=== PATIENT | female | born 1985 | race African-American/Black ===

== ENCOUNTER 2017-09-30 15:38 | Emergency (ER) | payer OTHER, MEDICAID, SELFPAY ==
[2017-09-30 18:00] LABS: HEMATOCRIT 37.5 % (36.0-47.0); MEAN CORPUSCULAR HEMOGLOBIN 26.7 pg (27.0-33.0); MEAN CORPUSCULAR VOLUME 83.5 fl (80.0-96.0); PLATELET COUNT, AUTOMATED 241 10^3/uL (150-450); RED BLOOD COUNT 4.49 10^6/uL (4.00-5.40); RED CELL DISTRIBUTION WIDTH 13.7 % (11.5-14.5); WHITE BLOOD COUNT 9.7 10^3/uL (4.0-10.0)
[2017-09-30] MEDS: NS 1,000 ML IV (18:07)
[2017-09-30 18:29] LABS: APPEARANCE, URINE HAZY (CLEAR); BACTERIA, URINE AUTO 2+ (NEGATIVE); BILIRUBIN, URINE AUTO NEGATIVE (NEGATIVE); BLOOD, URINE BLOOD NEGATIVE (NEGATIVE); COLOR, URINE YELLOW (YELLOW); GLUCOSE, URINE (UA) AUTO NEGATIVE (NEGATIVE); KETONE, URINE AUTO NEGATIVE (NEGATIVE); LEUKOCYTE ESTERASE, URINE AUTO NEGATIVE (NEGATIVE); MUCUS, URINE SMALL (NEGATIVE); NITRITE, URINE AUTO POSITIVE (NEGATIVE); PROTEIN, URINE AUTO NEGATIVE (NEGATIVE); RBC, URINE AUTO 4 /HPF (0-3); SQUAMOUS EPITHELIAL CELL UR AU 0 /HPF (0-6); UROBILINOGEN, URINE AUTO 0.2 mg/dL (0.0-2.0); WBC, URINE AUTO 1 /HPF (0-3); YEAST LIKE CELL URINE AUTO SMALL
[2017-09-30 18:31] LABS: HCG, SERUM QUANTITATIVE 190 MIU/ML
== END 2017-09-30 19:55 | disposition home or self-care (01) ==
LOC: M ED 15:38
DX: O20.0 Threatened abortion (principal); O23.11 Infections of bladder in pregnancy, first trimester; O34.81 Maternal care for other abnormalities of pelvic organs, first trimester; N83.201 Unspecified ovarian cyst, right side; Z98.890 Other specified postprocedural states; Z3A.00 Weeks of gestation of pregnancy not specified
CPT/HCPCS: 76801

== ENCOUNTER → 2017-10-02 | Outpatient (CLI) | payer OTHER ==
[2017-10-02 14:41] LABS: HCG, SERUM QUANTITATIVE 646 MIU/ML
== END ==
LOC: M LAB 08:00
DX: O20.0 Threatened abortion (principal)
CPT/HCPCS: 84702

== ENCOUNTER → 2017-10-02 | Outpatient (CLI) | payer OTHER | LOC: M LAB 13:32 | DX: O20.0 Threatened abortion (principal); Z3A.00 Weeks of gestation of pregnancy not specified ==

== ENCOUNTER 2017-10-08 17:43 | Emergency (ER) | payer OTHER ==
[2017-10-08 19:43] LABS: BASO % 0.2 % (0.0-1.0); EOS # 0.1 10^3/uL (0.0-0.50); EOS % 0.8 % (0.0-3.0); HEMATOCRIT 37.2 % (36.0-47.0); IMMATURE GRANULOCYTE % 0.3 % (0-3.0); LYMPH % 19.3 % (24.0-44.0); MEAN CORPUSCULAR HGB CONC 32.3 g/dl (32.0-36.5); MEAN CORPUSCULAR VOLUME 83.8 fl (80.0-96.0); MONO # 0.8 10^3/uL (0.0-0.8); MONO % 7.2 % (0.0-5.0); NEUTROPHILS # 7.5 10^3/uL (1.8-7.7); NEUTROPHILS % 72.2 % (36.0-66.0); PLATELET COUNT, AUTOMATED 238 10^3/uL (150-450); RED BLOOD COUNT 4.44 10^6/uL (4.00-5.40); RED CELL DISTRIBUTION WIDTH 14.3 % (11.5-14.5); WHITE BLOOD COUNT 10.4 10^3/uL (4.0-10.0)
[2017-10-08 20:03] LABS: AMMONIA 13 uMOL/L (<32)
[2017-10-08 20:19] LABS: LACTIC ACID SEPSIS PROTOCOL 1.9 MMOL/L (0.4-2.0)
[2017-10-08 20:22] LABS: ALBUMIN 3.4 GM/DL (3.2-5.2); ALBUMIN/GLOBULIN RATIO 0.89 (1.00-1.93); ALKALINE PHOSPHATASE 71 U/L (45-117); ALT/SGPT 40 U/L (12-78); ANION GAP 6 MEQ/L (8-16); AST/SGOT 17 U/L (7-37); BILIRUBIN,DIRECT 0.1 MG/DL (0.0-0.2); BILIRUBIN,TOTAL 0.3 MG/DL (0.2-1.0); BLOOD UREA NITROGEN 8 MG/DL (7-18); CALCIUM LEVEL 8.7 MG/DL (8.5-10.1); CARBON DIOXIDE LEVEL 25 MEQ/L (21-32); CHLORIDE LEVEL 108 MEQ/L (98-107); CREATININE FOR GFR 0.76 MG/DL (0.55-1.30); FREE THYROXINE INDEX 3.5 % (1.3-4.8); GLOMERULAR FILTRATION RATE > 60.0 (>60); GLUCOSE, FASTING 105 MG/DL (70-100); HCG, SERUM QUANTITATIVE 5803 MIU/ML; POTASSIUM SERUM 4.2 MEQ/L (3.5-5.1); SODIUM LEVEL 139 MEQ/L (136-145); T UPTAKE 30 % (30-39); THYROID STIMULATING HORMONE 0.691 uIU/ML (0.358-3.740); THYROXINE (T4) 11.5 UG/DL (4.5-12.0); TOTAL PROTEIN 7.2 GM/DL (6.4-8.2)
[2017-10-08 20:31] LABS: ETHYL ALCOHOL (ETHANOL) < 0.003 % (0.000-0.010)
[2017-10-08 20:53] LABS: ABG BASE EXCESS -3.8 (-2.0-2.0); ABG HCO3 19.5 MEQ/L (22.0-26.0); ABG O2 SATURATION 98.8 % (95.0-99.0); ABG PARTIAL PRESSURE CO2 30.5 mmHg (35.0-45.0); ABG PARTIAL PRESSURE O2 120.4 mmHg (75.0-100.0); ABG STANDARD HCO3 21.3 MEQ/L (22.0-26.0); ABG TOTAL CO2 20.4 MEQ/L (22.0-29.0); ABG pH (ARTERIAL) 7.423 UNITS (7.350-7.450)
[2017-10-08 21:54] LABS: AMORPHOUS SEDIMENT SMALL (NEGATIVE); APPEARANCE, URINE CLOUDY (CLEAR); BACTERIA, URINE AUTO NEGATIVE (NEGATIVE); BILIRUBIN, URINE AUTO NEGATIVE (NEGATIVE); BLOOD, URINE BLOOD 1+ (NEGATIVE); COLOR, URINE YELLOW (YELLOW); GLUCOSE, URINE (UA) AUTO NEGATIVE (NEGATIVE); KETONE, URINE AUTO TRACE mg/dL (NEGATIVE); LEUKOCYTE ESTERASE, URINE AUTO TRACE (NEGATIVE); MUCUS, URINE SMALL (NEGATIVE); NITRITE, URINE AUTO NEGATIVE (NEGATIVE); PROTEIN, URINE AUTO NEGATIVE (NEGATIVE); RBC, URINE AUTO 1 /HPF (0-3); SPECIFIC GRAVITY URINE AUTO 1.015 (1.002-1.035); SQUAMOUS EPITHELIAL CELL UR AU 1 /HPF (0-6); UROBILINOGEN, URINE AUTO 0.2 mg/dL (0.0-2.0); WBC, URINE AUTO 5 /HPF (0-3)
[2017-10-08] MEDS: MORPHINE 10 MG/ML 1ML VIAL (J2270) IM ×2 (22:00)
[2017-10-08 22:11] LABS: AMPHETAMINES LEVEL URINE NEGATIVE (NEGATIVE); BARBITURATES URINE NEGATIVE (NEGATIVE); BENZODIAZEPINES URINE NEGATIVE (NEGATIVE); CANNABINOIDS URINE NEGATIVE (NEGATIVE); COCAINE METABOLITE URINE NEGATIVE (NEGATIVE); METHADONE URINE NEGATIVE (NEGATIVE); OPIATES URINE NEGATIVE (NEGATIVE); PHENCYCLIDINE URINE NEGATIVE (NEGATIVE)
== END 2017-10-09 00:58 | disposition home or self-care (01) ==
LOC: M ED 10-09 00:58
DX: O99.351 Diseases of the nervous system complicating pregnancy, first trimester (principal); O99.89 Other specified diseases and conditions complicating pregnancy, childbirth and the puerperium (principal); Z3A.01 Less than 8 weeks gestation of pregnancy; G43.909 Migraine, unspecified, not intractable, without status migrainosus; O34.81 Maternal care for other abnormalities of pelvic organs, first trimester
CPT/HCPCS: J2270

== ENCOUNTER → 2017-11-08 | Outpatient (CLI) | payer OTHER ==
[2017-11-08 17:10] LABS: ESTIMATED AVERAGE GLUCOSE 100 MG/DL (60-110); HEMOGLOBIN A1c 5.1 %
[2017-11-08 17:27] LABS: GLUCOSE CHALLENGE TEST 1 HOUR 144 MG/DL (LESS THAN 140)
[2017-11-08 17:44] LABS: BASO % 0.3 % (0.0-1.0); EOS # 0.2 10^3/uL (0.0-0.50); EOS % 2.1 % (0.0-3.0); HEMATOCRIT 35.8 % (36.0-47.0); HEMOGLOBIN 11.5 g/dl (12.0-15.5); IMMATURE GRANULOCYTE % 0.3 % (0-3.0); LYMPH # 2.5 10^3/uL (1.5-4.5); LYMPH % 31.1 % (24.0-44.0); MEAN CORPUSCULAR HEMOGLOBIN 27.1 pg (27.0-33.0); MEAN CORPUSCULAR HGB CONC 32.1 g/dl (32.0-36.5); MEAN CORPUSCULAR VOLUME 84.2 fl (80.0-96.0); MONO # 0.7 10^3/uL (0.0-0.8); MONO % 8.8 % (0.0-5.0); NEUTROPHILS # 4.6 10^3/uL (1.8-7.7); NEUTROPHILS % 57.4 % (36.0-66.0); PLATELET COUNT, AUTOMATED 256 10^3/uL (150-450); RED BLOOD COUNT 4.25 10^6/uL (4.00-5.40)
[2017-11-08 19:12] LABS: CHLAMYDIA DNA AMPLIFICATION NEGATIVE (NEGATIVE); GC DNA AMPLIFICATION NEGATIVE (NEGATIVE)
[2017-11-09 11:53] LABS: RUBELLA IgG QUALITATIVE IMMUNE (IMMUNE)
[2017-11-09 11:55] LABS: HBsAg Prenatal NEGATIVE (NEGATIVE)
[2017-11-09 12:20] LABS: HEPATITIS C VIRUS ABY INDEX 0.1 INDEX (<0.8)
[2017-11-09 12:23] LABS: HIV 1&2 SCREEN CENTAUR NEGATIVE (NEGATIVE)
== END ==
LOC: M LAB 14:34
DX: Z36.89 Encounter for other specified antenatal screening (principal)
CPT/HCPCS: 82950

== ENCOUNTER → 2017-11-28 | Outpatient (CLI) | payer OTHER ==
[2017-11-28 09:34] LABS: GLUCOSE, FASTING 99 MG/DL (LESS THAN 95)
[2017-11-28 09:47] LABS: 1 HR GLUCOSE 186 MG/DL (LESS THAN 180)
[2017-11-28 10:38] LABS: 2 HR GLUCOSE 202 MG/DL (LESS THAN 155)
[2017-11-28 11:37] LABS: 3 HR GLUCOSE 147 MG/DL (LESS THAN 140)
== END ==
LOC: M LAB 08:01
DX: Z34.81 Encounter for supervision of other normal pregnancy, first trimester (principal); Z36.89 Encounter for other specified antenatal screening
CPT/HCPCS: 82951

== ENCOUNTER → 2018-01-11 | Outpatient (CLI) | payer OTHER | LOC: M RAD 09:46 | DX: Z36.89 Encounter for other specified antenatal screening (principal); O28.3 Abnormal ultrasonic finding on antenatal screening of mother; Z3A.17 17 weeks gestation of pregnancy | CPT/HCPCS: 76811 ==

== ENCOUNTER 2018-03-01 18:59 | Emergency (ER) | payer OTHER ==
[2018-03-01 20:11] LABS: BASO % 0.3 % (0.0-1.0); EOS # 0.2 10^3/uL (0.0-0.50); HEMATOCRIT 33.5 % (36.0-47.0); HEMOGLOBIN 10.6 g/dl (12.0-15.5); IMMATURE GRANULOCYTE % 0.5 % (0-3.0); LYMPH # 2.9 10^3/uL (1.5-4.5); LYMPH % 37.3 % (24.0-44.0); MEAN CORPUSCULAR HEMOGLOBIN 27.1 pg (27.0-33.0); MEAN CORPUSCULAR HGB CONC 31.6 g/dl (32.0-36.5); MEAN CORPUSCULAR VOLUME 85.7 fl (80.0-96.0); MONO # 0.6 10^3/uL (0.0-0.8); MONO % 7.3 % (0.0-5.0); NEUTROPHILS % 51.6 % (36.0-66.0); PLATELET COUNT, AUTOMATED 323 10^3/uL (150-450); RED BLOOD COUNT 3.91 10^6/uL (4.00-5.40); RED CELL DISTRIBUTION WIDTH 12.9 % (11.5-14.5); WHITE BLOOD COUNT 7.7 10^3/uL (4.0-10.0)
[2018-03-01 20:24] LABS: D-DIMER QUANT 579.1 ng/ml (<500)
[2018-03-01 20:39] LABS: ANION GAP 7 MEQ/L (8-16); BLOOD UREA NITROGEN 9 MG/DL (7-18); CALCIUM LEVEL 8.8 MG/DL (8.5-10.1); CARBON DIOXIDE LEVEL 26 MEQ/L (21-32); CHLORIDE LEVEL 109 MEQ/L (98-107); CPK CREATINE PHOSPHOKINASE 164 U/L (26-192); GLOMERULAR FILTRATION RATE > 60.0 (>60); GLUCOSE, FASTING 111 MG/DL (70-100); MB/CK RELATIVE INDEX 0.79 (< OR =4); POTASSIUM SERUM 3.8 MEQ/L (3.5-5.1); SODIUM LEVEL 142 MEQ/L (136-145); TROPONIN I < 0.02 NG/ML (< 0.10)
[2018-03-01] MEDS ORDERED: ISOVUE-370 76% 100ML VIAL (Q9967) As Ordered (20:44)
[2018-03-01] MEDS: TUSSICAPS ER 10/8MG CAPSULE PO (22:07)
== END 2018-03-01 22:16 | disposition home or self-care (01) ==
LOC: M ED 18:59
DX: J20.9 Acute bronchitis, unspecified (principal)
CPT/HCPCS: Q9967

== ENCOUNTER → 2018-04-10 | Outpatient (CLI) | payer OTHER ==
[2018-04-10 14:25] LABS: BASO % 0.4 % (0.0-1.0); EOS # 0.1 10^3/uL (0.0-0.50); EOS % 2.2 % (0.0-3.0); HEMATOCRIT 38.4 % (36.0-47.0); HEMOGLOBIN 12.1 g/dl (12.0-15.5); IMMATURE GRANULOCYTE % 0.2 % (0-3.0); LYMPH # 2.3 10^3/uL (1.5-4.5); LYMPH % 46.1 % (24.0-44.0); MEAN CORPUSCULAR HEMOGLOBIN 26.2 pg (27.0-33.0); MEAN CORPUSCULAR HGB CONC 31.5 g/dl (32.0-36.5); MEAN CORPUSCULAR VOLUME 83.1 fl (80.0-96.0); MONO # 0.5 10^3/uL (0.0-0.8); MONO % 9.9 % (0.0-5.0); NEUTROPHILS # 2.1 10^3/uL (1.8-7.7); NEUTROPHILS % 41.2 % (36.0-66.0); PLATELET COUNT, AUTOMATED 263 10^3/uL (150-450); RED BLOOD COUNT 4.62 10^6/uL (4.00-5.40); RED CELL DISTRIBUTION WIDTH 13.5 % (11.5-14.5)
[2018-04-10 14:26] LABS: APPEARANCE, URINE CLEAR (CLEAR); BACTERIA, URINE AUTO NEGATIVE (NEGATIVE); BILIRUBIN, URINE AUTO NEGATIVE (NEGATIVE); BLOOD, URINE BLOOD NEGATIVE (NEGATIVE); COLOR, URINE YELLOW (YELLOW); GLUCOSE, URINE (UA) AUTO NEGATIVE (NEGATIVE); KETONE, URINE AUTO TRACE mg/dL (NEGATIVE); LEUKOCYTE ESTERASE, URINE AUTO TRACE (NEGATIVE); MUCUS, URINE SMALL (NEGATIVE); NITRITE, URINE AUTO NEGATIVE (NEGATIVE); PROTEIN, URINE AUTO NEGATIVE (NEGATIVE); RBC, URINE AUTO 3 /HPF (0-3); SPECIFIC GRAVITY URINE AUTO 1.021 (1.002-1.035); SQUAMOUS EPITHELIAL CELL UR AU 2 /HPF (0-6); WBC, URINE AUTO 7 /HPF (0-3)
[2018-04-10 15:02] LABS: ALBUMIN 3.4 GM/DL (3.2-5.2); ALBUMIN/GLOBULIN RATIO 0.94 (1.00-1.93); ALKALINE PHOSPHATASE 92 U/L (45-117); ALT/SGPT 31 U/L (12-78); ANION GAP 7 MEQ/L (8-16); AST/SGOT 16 U/L (7-37); BILIRUBIN,TOTAL 0.5 MG/DL (0.2-1.0); BLOOD UREA NITROGEN 8 MG/DL (7-18); CALCIUM LEVEL 8.3 MG/DL (8.5-10.1); CARBON DIOXIDE LEVEL 25 MEQ/L (21-32); CHLORIDE LEVEL 110 MEQ/L (98-107); CHOLESTEROL LEVEL 131 MG/DL (<200); CREATININE FOR GFR 0.72 MG/DL (0.55-1.30); FREE T4 1.15 NG/DL (0.76-1.46); GLOMERULAR FILTRATION RATE > 60.0 (>60); GLUCOSE, FASTING 74 MG/DL (70-100); HDL CHOLESTEROL 37 MG/DL (>40); LDL CHOLESTEROL 84 MG/DL (<100); NON-HDL-C 94 MG/DL; POTASSIUM SERUM 4.2 MEQ/L (3.5-5.1); SODIUM LEVEL 142 MEQ/L (136-145); TRIGLYCERIDES LEVEL 48 MG/DL (<150)
[2018-04-10 15:34] LABS: ESTIMATED AVERAGE GLUCOSE 108 MG/DL (60-110); HEMOGLOBIN A1c 5.4 %
== END ==
LOC: M LAB 13:24
DX: Z00.00 Encounter for general adult medical examination without abnormal findings (principal); O99.719 Diseases of the skin and subcutaneous tissue complicating pregnancy, unspecified trimester; O24.410 Gestational diabetes mellitus in pregnancy, diet controlled
CPT/HCPCS: 84443

== ENCOUNTER → 2018-07-21 | Outpatient (CLI) | payer OTHER ==
[~2018-07-21] MED LIST: KURV0.15 PO; MACR100C43 PO; MUCI600T37 PO; MULTIVITAMIN PO; PRENTAB45 PO; TUSS1CAP5 PO; TUSS1SUS2 PO; prenatal vitamin PO
--- NOTE | 2018-07-21 20:01 | REP ---
Emergency first trimester obstetric sonography: History: Supervision of . Findings: Scanning demonstrates a single living intrauterine gestation in a free-floating lie. The crown-rump length of the embryonic pole measures 17 mm. This corresponds with a gestational age estimate of 8 weeks 1 day. heart rate is recorded at 174 beats per minute. No subchorionic hemorrhage is seen. There is a cyst in the maternal left ovary consistent with corpus luteum. There is a focal area of slight thickening in the anterior myometrium which could be a fibroid 3.1 cm in diameter. Impression: Viable single intrauterine gestation of 8 weeks 1 day by crown-rump length. PRAKASH by sonography March 01, 2019. Possible small myometrial fibroid. No complication identified. Electronically Signed by Maverick Cardona MD 07/21/2018 10:34 P
== END ==
LOC: M RAD 15:42
PROVIDERS: ATTEND Nurse Practitioner Family
DX: Z32.01 Encounter for pregnancy test, result positive (principal); Z3A.08 8 weeks gestation of pregnancy

== ENCOUNTER → 2018-08-14 | Outpatient (CLI) | payer OTHER ==
[2018-08-14 11:47] LABS: BASO % 0.3 % (0.0-1.0); EOS # 0.2 10^3/uL (0.0-0.50); EOS % 2.6 % (0.0-3.0); HEMATOCRIT 38.7 % (36.0-47.0); HEMOGLOBIN 12.2 g/dl (12.0-15.5); LYMPH # 2.1 10^3/uL (1.5-4.5); LYMPH % 36.8 % (24.0-44.0); MEAN CORPUSCULAR HEMOGLOBIN 26.8 pg (27.0-33.0); MEAN CORPUSCULAR HGB CONC 31.5 g/dl (32.0-36.5); MEAN CORPUSCULAR VOLUME 84.9 fl (80.0-96.0); MONO # 0.7 10^3/uL (0.0-0.8); MONO % 11.2 % (0.0-5.0); NEUTROPHILS # 2.8 10^3/uL (1.8-7.7); NEUTROPHILS % 48.8 % (36.0-66.0); PLATELET COUNT, AUTOMATED 272 10^3/uL (150-450); RED BLOOD COUNT 4.56 10^6/uL (4.00-5.40); WHITE BLOOD COUNT 5.8 10^3/uL (4.0-10.0)
[2018-08-14 12:09] LABS: HEMOGLOBIN A1c 5.2 %
[2018-08-14 12:25] LABS: ALBUMIN 3.6 GM/DL (3.2-5.2); ALT/SGPT 31 U/L (12-78); BILIRUBIN,TOTAL 0.4 MG/DL (0.2-1.0); BLOOD UREA NITROGEN 10 MG/DL (7-18); CALCIUM LEVEL 8.5 MG/DL (8.5-10.1); CARBON DIOXIDE LEVEL 25 MEQ/L (21-32); CHLORIDE LEVEL 110 MEQ/L (98-107); CHOLESTEROL LEVEL 138 MG/DL (<200); CHOLESTEROL RISK RATIO 3.833 (<5); CREATININE FOR GFR 0.72 MG/DL (0.55-1.30); FERRITIN 18 NG/ML (8-252); FREE T4 1.09 NG/DL (0.76-1.46); GLOMERULAR FILTRATION RATE > 60.0 (>60); GLUCOSE, FASTING 95 MG/DL (70-100); HDL CHOLESTEROL 36 MG/DL (>40); IRON (FE) 56 UG/DL (50-170); LDL CHOLESTEROL 84 MG/DL (<100); NON-HDL-C 102 MG/DL; PERCENT SATURATION 14.6 % (13.2-45.0); POTASSIUM SERUM 4.4 MEQ/L (3.5-5.1); SODIUM LEVEL 140 MEQ/L (136-145); TOTAL IRON BINDING CAPACITY 383 UG/DL (250-450); TRIGLYCERIDES LEVEL 90 MG/DL (<150)
[2018-08-14 12:26] LABS: VITAMIN B12 LEVEL 622 PG/ML (247-911)
[2018-08-14 12:27] LABS: FOLATE 15.6 NG/ML (>5.4)
[2018-08-17 00:06] LABS: HEMOGLOBIN A 97.5 % (96.4-98.8); HEMOGLOBIN A2 2.5 % (1.8-3.2); HGB SOLUBILITY Negative (Negative); Lyme Disease IgG/IgM Antibodie <0.91 ISR (0.00-0.90); Lyme Disease IgM Ab Quantitati <0.80 index (0.00-0.79)
== END ==
LOC: M LAB 10:55
PROVIDERS: ATTEND Family Medicine
DX: Z00.00 Encounter for general adult medical examination without abnormal findings (principal); O24.410 Gestational diabetes mellitus in pregnancy, diet controlled; D64.9 Anemia, unspecified; Z3A.00 Weeks of gestation of pregnancy not specified

== ENCOUNTER → 2018-08-29 | Outpatient (REF) | payer OTHER ==
[2018-08-29 15:48] LABS: APPEARANCE, URINE CLEAR (CLEAR); BACTERIA, URINE AUTO NEGATIVE (NEGATIVE); BILIRUBIN, URINE AUTO NEGATIVE (NEGATIVE); BLOOD, URINE BLOOD NEGATIVE (NEGATIVE); CALCIUM OXALATE CRYSTALS SMALL; COLOR, URINE YELLOW (YELLOW); GLUCOSE, URINE (UA) AUTO NEGATIVE (NEGATIVE); KETONE, URINE AUTO NEGATIVE (NEGATIVE); LEUKOCYTE ESTERASE, URINE AUTO NEGATIVE (NEGATIVE); MUCUS, URINE SMALL (NEGATIVE); NITRITE, URINE AUTO NEGATIVE (NEGATIVE); PROTEIN, URINE AUTO NEGATIVE (NEGATIVE); RBC, URINE AUTO 0 /HPF (0-3); SPECIFIC GRAVITY URINE AUTO 1.026 (1.002-1.035); SQUAMOUS EPITHELIAL CELL UR AU 0 /HPF (0-6); UROBILINOGEN, URINE AUTO 0.2 mg/dL (0.0-2.0); WBC, URINE AUTO 1 /HPF (0-3)
== END ==
LOC: M LAB REF 15:14
PROVIDERS: ATTEND Family Medicine
DX: L81.1 Chloasma (principal); Z00.00 Encounter for general adult medical examination without abnormal findings; O24.410 Gestational diabetes mellitus in pregnancy, diet controlled; D64.9 Anemia, unspecified

== ENCOUNTER → 2018-11-01 | Outpatient (CLI) | payer OTHER ==
[2018-11-01 12:44] LABS: BASO % 0.2 % (0.0-1.0); EOS # 0.1 10^3/uL (0.0-0.50); EOS % 2.8 % (0.0-3.0); HEMATOCRIT 34.7 % (36.0-47.0); HEMOGLOBIN 11.1 g/dl (12.0-15.5); LYMPH # 2.3 10^3/uL (1.5-4.5); LYMPH % 45.3 % (24.0-44.0); MEAN CORPUSCULAR HEMOGLOBIN 26.9 pg (27.0-33.0); MEAN CORPUSCULAR VOLUME 84.2 fl (80.0-96.0); MONO # 0.6 10^3/uL (0.0-0.8); MONO % 11.9 % (0.0-5.0); NEUTROPHILS % 39.6 % (36.0-66.0); PLATELET COUNT, AUTOMATED 199 10^3/uL (150-450); RED BLOOD COUNT 4.12 10^6/uL (4.00-5.40); WHITE BLOOD COUNT 5.1 10^3/uL (4.0-10.0)
[2018-11-01 12:45] LABS: HEMATOCRIT 34.7 % (36.0-47.0)
[2018-11-01 13:13] LABS: ALBUMIN 3.3 GM/DL (3.2-5.2); ALT/SGPT 25 U/L (12-78); BILIRUBIN,TOTAL 0.4 MG/DL (0.2-1.0); BLOOD UREA NITROGEN 7 MG/DL (7-18); CALCIUM LEVEL 8.3 MG/DL (8.5-10.1); CARBON DIOXIDE LEVEL 24 MEQ/L (21-32); CHLORIDE LEVEL 109 MEQ/L (98-107); CREATININE FOR GFR 0.61 MG/DL (0.55-1.30); GLOMERULAR FILTRATION RATE > 60.0 (>60); GLUCOSE, FASTING 74 MG/DL (70-100); PHOSPHORUS LEVEL 2.9 MG/DL (2.5-4.9); POTASSIUM SERUM 3.7 MEQ/L (3.5-5.1); SODIUM LEVEL 142 MEQ/L (136-145); TOTAL PROTEIN 6.4 GM/DL (6.4-8.2)
[2018-11-01 13:14] LABS: FERRITIN 60 NG/ML (8-252); IRON (FE) 86 UG/DL (50-170); PERCENT SATURATION 33.7 % (13.2-45.0); TOTAL IRON BINDING CAPACITY 255 UG/DL (250-450)
[2018-11-01 13:20] LABS: HEMOGLOBIN A1c 4.7 %
[2018-11-01 13:51] LABS: VITAMIN B12 LEVEL > 2000 PG/ML (247-911)
== END ==
LOC: M LAB 11:58
PROVIDERS: ATTEND Surgery
DX: K91.2 Postsurgical malabsorption, not elsewhere classified (principal); E55.9 Vitamin D deficiency, unspecified; Z98.84 Bariatric surgery status

== ENCOUNTER → 2018-11-24 | Outpatient (CLI) | payer OTHER ==
--- NOTE | 2018-11-24 19:13 | REP ---
Right knee six views: Mineralization and joint spaces are normal. There is no fracture or dislocation. There are no calcifications or foreign bodies. There is questionably a suprapatellar effusion. Impression: Essentially negative right knee except for a questionable suprapatellar effusion. Electronically Signed by Pablo Villa MD 11/24/2018 07:04 P
== END ==
LOC: M LRY 18:31
PROVIDERS: ATTEND Physician Assistant
DX: M25.561 Pain in right knee (principal)

== ENCOUNTER → 2019-04-04 | Outpatient (CLI) | payer OTHER ==
[2019-04-04 15:38] LABS: BASO % 0.4 % (0.0-1.0); EOS # 0.1 10^3/uL (0.0-0.5); EOS % 2.2 % (0.0-3.0); LYMPH # 2.2 10^3/uL (1.5-5.0); MEAN CORPUSCULAR HEMOGLOBIN 26.8 pg (27.0-33.0); MEAN CORPUSCULAR HGB CONC 31.4 g/dl (32.0-36.5); MEAN CORPUSCULAR VOLUME 85.4 fl (80.0-96.0); MONO # 0.4 10^3/uL (0.0-0.8); MONO % 9.5 % (0.0-5.0); NEUTROPHILS # 1.9 10^3/uL (1.5-8.5); NEUTROPHILS % 40.7 % (36.0-66.0); PLATELET COUNT, AUTOMATED 260 10^3/uL (150-450); WHITE BLOOD COUNT 4.6 10^3/uL (4.0-10.0)
[2019-04-04 16:02] LABS: HEMOGLOBIN A1c 4.8 %
[2019-04-04 16:42] LABS: ALBUMIN 3.5 GM/DL (3.2-5.2); ALT/SGPT 21 U/L (12-78); BILIRUBIN,TOTAL 0.7 MG/DL (0.2-1.0); BLOOD UREA NITROGEN 6 MG/DL (7-18); CALCIUM LEVEL 8.6 MG/DL (8.5-10.1); CARBON DIOXIDE LEVEL 27 MEQ/L (21-32); CHLORIDE LEVEL 111 MEQ/L (98-107); CREATININE FOR GFR 0.72 MG/DL (0.55-1.30); FERRITIN 11 NG/ML (8-252); GLOMERULAR FILTRATION RATE > 60.0 (>60); GLUCOSE, FASTING 74 MG/DL (70-100); IRON (FE) 95 UG/DL (50-170); PERCENT SATURATION 29.7 % (13.2-45.0); PHOSPHORUS LEVEL 2.9 MG/DL (2.5-4.9); POTASSIUM SERUM 4.2 MEQ/L (3.5-5.1); SODIUM LEVEL 143 MEQ/L (136-145); TOTAL IRON BINDING CAPACITY 320 UG/DL (250-450); TOTAL PROTEIN 6.8 GM/DL (6.4-8.2)
[2019-04-04 16:50] LABS: TOTAL 25(OH) VITAMIN D 13.7 NG/ML (30.0-100.0); VITAMIN B12 LEVEL 532 PG/ML (247-911)
== END ==
LOC: M LAB 14:22
PROVIDERS: ATTEND Surgery
DX: F91.2 Conduct disorder, adolescent-onset type (principal); Z98.84 Bariatric surgery status; E55.9 Vitamin D deficiency, unspecified

== ENCOUNTER → 2019-05-07 | Outpatient (REF) | payer OTHER ==
[~2019-05-07] MED LIST changes: +PYRI1TAB5 PO
== END ==
LOC: M LAB REF 16:44
PROVIDERS: ATTEND Internal Medicine Gastroenterology
DX: K21.9 Gastro-esophageal reflux disease without esophagitis (principal)

== ENCOUNTER → 2019-05-09 | Outpatient (CLI) | payer OTHER ==
[2019-05-09 12:12] LABS: ALBUMIN 3.6 GM/DL (3.2-5.2); ALT/SGPT 17 U/L (12-78); BILIRUBIN,TOTAL 0.9 MG/DL (0.2-1.0); BLOOD UREA NITROGEN 8 MG/DL (7-18); CALCIUM LEVEL 8.7 MG/DL (8.5-10.1); CARBON DIOXIDE LEVEL 26 MEQ/L (21-32); CHLORIDE LEVEL 109 MEQ/L (98-107); GLOMERULAR FILTRATION RATE > 60.0 (>60); GLUCOSE, FASTING 77 MG/DL (70-100); POTASSIUM SERUM 4.3 MEQ/L (3.5-5.1); SODIUM LEVEL 140 MEQ/L (136-145); TOTAL PROTEIN 6.8 GM/DL (6.4-8.2)
[2019-05-09 12:22] LABS: HEPATITIS B SURFACE ANTIBODY POSITIVE (POSITIVE)
[2019-05-09 12:32] LABS: HEPATITIS B SURFACE ANTIGEN NEGATIVE (NEGATIVE)
[2019-05-09 12:59] LABS: HEPATITIS B CORE ANTIBODY IGM NEGATIVE (NEGATIVE)
--- NOTE | 2019-05-10 11:25 | REP ---
Clinical: Hepatic steatosis. Technique: Real time bryant scale ultrasound examination using curved array transducer. Findings: Liver and pancreas are normal in contour, size, echogenicity without focal hepatic or pancreatic lesions identified. The gallbladder demonstrates mobile gallstones without wall thickening or pericholecystic fluid. No biliary ductal dilatation is appreciated and the common bile duct measures 3.4 mm diameter. The right kidney is normal in reniform shape without hydronephrosis and measures 11.9 x 6.1 x 4.3 cm. Abdominal aorta is normal. No ascites. Impression: 1. Normal appearance to the liver without obvious hepatic steatosis. 2. Cholelithiasis. Electronically Signed by Chao Wick MD 05/10/2019 06:44 A
[2019-05-11 08:40] LABS: HEPATITIS A IgG TOTAL Positive (Negative); HEPATITIS B CORE ANTIBODY IGG Positive (Negative)
== END ==
LOC: M RAD 10:04
PROVIDERS: ATTEND Internal Medicine Gastroenterology
DX: K80.20 Calculus of gallbladder without cholecystitis without obstruction (principal); R94.5 Abnormal results of liver function studies

== ENCOUNTER 2019-11-11 13:56 | Emergency (ER) | payer OTHER ==
[~2019-11-11] VITALS: Ht 175.3 cm; Wt 86.3 kg
[2019-11-11] MEDS ORDERED: NS 1,000 ML IV ONE (14:15)
[2019-11-11 14:54] LABS: HEMATOCRIT 35.4 % (36.0-47.0); HEMOGLOBIN 11.3 g/dl (12.0-15.5); MEAN CORPUSCULAR HEMOGLOBIN 26.8 pg (27.0-33.0); MEAN CORPUSCULAR HGB CONC 31.9 g/dl (32.0-36.5); MEAN CORPUSCULAR VOLUME 83.9 fl (80.0-96.0); PLATELET COUNT, AUTOMATED 234 10^3/uL (150-450); RED BLOOD COUNT 4.22 10^6/uL (4.00-5.40); WHITE BLOOD COUNT 6.3 10^3/uL (4.0-10.0)
[2019-11-11 14:55] LABS: BASO % 0.3 % (0.0-1.0); EOS # 0.1 10^3/uL (0.0-0.5); EOS % 1.2 % (0.0-3.0); HEMATOCRIT 36.4 % (36.0-47.0); HEMOGLOBIN 11.3 g/dl (12.0-15.5); LYMPH # 1.8 10^3/uL (1.5-5.0); LYMPH % 27.8 % (24.0-44.0); MEAN CORPUSCULAR HEMOGLOBIN 26.4 pg (27.0-33.0); MONO # 0.7 10^3/uL (0.0-0.8); MONO % 10.1 % (0.0-5.0); NEUTROPHILS % 60.3 % (36.0-66.0); PLATELET COUNT, AUTOMATED 234 10^3/uL (150-450); RED BLOOD COUNT 4.28 10^6/uL (4.00-5.40); WHITE BLOOD COUNT 6.6 10^3/uL (4.0-10.0)
[2019-11-11 15:05] LABS: INR 1.12; PROTHROMBIN TIME 14.1 SECONDS (11.8-14.0)
[2019-11-11 15:16] LABS: ALBUMIN 3.3 GM/DL (3.2-5.2); BILIRUBIN,DIRECT 0.2 MG/DL (0.0-0.2); BILIRUBIN,TOTAL 0.6 MG/DL (0.2-1.0); TOTAL PROTEIN 6.6 GM/DL (6.4-8.2)
[2019-11-11 15:17] LABS: HCG, SERUM QUALITATIVE POSITIVE (NEGATIVE)
[2019-11-11 15:25] LABS: BLOOD UREA NITROGEN 8 MG/DL (7-18); CALCIUM LEVEL 7.5 MG/DL (8.5-10.1); CARBON DIOXIDE LEVEL 21 MEQ/L (21-32); CHLORIDE LEVEL 114 MEQ/L (98-107); CK-MB VALUE MASS < 1.0 NG/ML (<3.6); CPK CREATINE PHOSPHOKINASE 47 U/L (26-192); ETHYL ALCOHOL (ETHANOL) < 0.003 % (0.000-0.010); GLOMERULAR FILTRATION RATE > 60.0 (>60); GLUCOSE, FASTING 68 MG/DL (70-100); MB/CK RELATIVE INDEX 2.13 (< OR =4); POTASSIUM SERUM 3.5 MEQ/L (3.5-5.1); SODIUM LEVEL 141 MEQ/L (136-145); THYROID STIMULATING HORMONE 0.917 uIU/ML (0.358-3.740); TROPONIN I < 0.02 NG/ML (< 0.10)
[2019-11-11 15:29] LABS: BLOOD UREA NITROGEN 9 MG/DL (7-18); CALCIUM LEVEL 8.2 MG/DL (8.5-10.1); CARBON DIOXIDE LEVEL 22 MEQ/L (21-32); CHLORIDE LEVEL 111 MEQ/L (98-107); CREATININE FOR GFR 0.68 MG/DL (0.55-1.30); GLOMERULAR FILTRATION RATE > 60.0 (>60); GLUCOSE, FASTING 74 MG/DL (70-100); POTASSIUM SERUM 4.5 MEQ/L (3.5-5.1); SODIUM LEVEL 141 MEQ/L (136-145)
[2019-11-11 17:57] LABS: AMPHETAMINES LEVEL URINE NEGATIVE (NEGATIVE); BARBITURATES URINE NEGATIVE (NEGATIVE); BENZODIAZEPINES URINE NEGATIVE (NEGATIVE); CANNABINOIDS URINE NEGATIVE (NEGATIVE); COCAINE METABOLITE URINE NEGATIVE (NEGATIVE); METHADONE URINE NEGATIVE (NEGATIVE); OPIATES URINE NEGATIVE (NEGATIVE); PHENCYCLIDINE URINE NEGATIVE (NEGATIVE)
[2019-11-11] MEDS ORDERED: AMOXICILLIN 500 MG CAP PO ONE (18:00)
[2019-11-11] MEDS ORDERED: AMOX500C PO ×2 (18:02→18:23)
[2019-11-11 18:15] VITALS: BP 117/81
--- NOTE | 2019-11-11 19:20 | ECGEPIP ---
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
--- NOTE | 2019-11-12 03:24 | REP ---
FIRST TRIMESTER OB ULTRASOUND: 11/11/2019. CLINICAL HISTORY: Supervision of first trimester. Abdominal pain. Using the bladder as an acoustic window, the uterus is noted with a gestational sac in the fundus. Within the sac is a pole measuring 3.7 mm, corresponding to 6 weeks. Mean sac diameter is 1.7 cm, corresponding to 6 weeks. (LMP would be at 5 weeks 4 days.) There is no evidence of a subchorionic bleed. A yolk sac was identified. Maternal right ovary has a 4.2 x 3.6 x 3.3 cm corpus luteum cyst. No pelvic free fluid. Left ovary not seen. IMPRESSION: 1. There is a single intrauterine gestation with a sac seen in the fundus and, by crown-rump length, at 6 weeks gestation, which would give an EDC of 07/06/2020. 2. There is a 4.2 x 3.6 x 3.3 cm right corpus luteum cyst. No pelvic free fluid. No other findings. Electronically Signed by Mahendra Kumar MD 11/12/2019 08:49 A
--- NOTE | 2019-11-12 03:27 | REP ---
RIGHT UPPER QUADRANT ULTRASOUND: 11/11/2019. COMPARISON: 05/09/2019 CLINICAL HISTORY: Right upper quadrant pain. Syncope. Known cholelithiasis. FINDINGS: Sonographic evaluation of the right upper quadrant shows the liver homogeneous in echotexture and without focal hepatic mass, intrahepatic biliary dilatation, nor perihepatic ascites. Gallbladder shows mobile echogenic foci with shadowing, consistent with stones. This is partially contracted and represents the [id number] sign. Common duct is 2.3 mm without a common duct stone. Pancreas is not visible due to extensive gas shadowing. Right kidney measures 11.2 x 6.2 x 3.9 cm without hydronephrosis or visible stone. No free fluid. IMPRESSION: 1. Cholelithiasis with multiple mobile stones and a qegz-[id number]-lrgzwg sign evident. No intrahepatic biliary dilatation. 2. Common duct 2.3 mm and normal. 3. Liver and right kidney unremarkable. Pancreas obscured in its entirety by gas shadowing. Electronically Signed by Mahendra Kumar MD 11/12/2019 08:49 A
== END 2019-11-11 18:39 | disposition home or self-care (01) ==
LOC: M ED 13:56
DX: O99.89 Other specified diseases and conditions complicating pregnancy, childbirth and the puerperium (principal); R55 Syncope and collapse; O99.841 Bariatric surgery status complicating pregnancy, first trimester; Z3A.01 Less than 8 weeks gestation of pregnancy
CPT/HCPCS: 76705; 76801; 80048; 80076; 80307; 81001; 82150; 82550; 82553; 83690; 84443; 84484; 84702; 84703; 85025; 85027; 85610; 87086; 93005; 93041; 94760; 96360; 96361; 99285; G0480

== ENCOUNTER 2020-04-12 02:30 | Outpatient (CLI) | payer OTHER ==
[~2020-04-12] VITALS: Ht 175.3 cm; Wt 95.9 kg
[~2020-04-12 02:30] MED LIST changes: +AMOX500C PO
[2020-04-12 02:35] VITALS: BP 119/71
[2020-04-12] MEDS ORDERED: IRON27TA2 PO (02:49)
[2020-04-12] MEDS ORDERED: COLA100C5 PO (02:49)
[2020-04-12 03:34] LABS: HEMATOCRIT 30.8 % (36.0-47.0); HEMOGLOBIN 9.5 g/dl (12.0-15.5); MEAN CORPUSCULAR HGB CONC 30.8 g/dl (32.0-36.5); MEAN CORPUSCULAR VOLUME 84.2 fl (80.0-96.0); PLATELET COUNT, AUTOMATED 189 10^3/uL (150-450); RED BLOOD COUNT 3.66 10^6/uL (4.00-5.40); WHITE BLOOD COUNT 8.5 10^3/uL (4.0-10.0)
[2020-04-12 03:56] VITALS: BP 103/63
[2020-04-12 04:05] LABS: ALBUMIN 2.6 GM/DL (3.2-5.2); ALT/SGPT 19 U/L (12-78); BILIRUBIN,TOTAL 0.2 MG/DL (0.2-1.0); BLOOD UREA NITROGEN 8 MG/DL (7-18); CALCIUM LEVEL 7.9 MG/DL (8.5-10.1); CARBON DIOXIDE LEVEL 25 MEQ/L (21-32); CHLORIDE LEVEL 113 MEQ/L (98-107); CREATININE FOR GFR 0.52 MG/DL (0.55-1.30); GLOMERULAR FILTRATION RATE > 60.0 (>60); GLUCOSE, FASTING 107 MG/DL (70-100); POTASSIUM SERUM 3.7 MEQ/L (3.5-5.1); SODIUM LEVEL 141 MEQ/L (136-145); TOTAL PROTEIN 5.7 GM/DL (6.4-8.2)
--- NOTE | 2020-04-12 04:13 | REPVR ---
PROCEDURE INFORMATION: Exam: US Abdomen Complete Exam date and time: 04/12/2020 3:35 AM Age: 34 years old Clinical indication: Abdominal pain; Epigastric; ; Prior surgery; Surgery date: 6+ months; Surgery type: Gastric bypass; Additional info: HX gastric bypass. Requesting bedside US of upper abdomen TECHNIQUE: Imaging protocol: Real-time ultrasound of the abdomen with image documentation. COMPARISON: Abdomen, limited US 11/11/2019 3:36 PM FINDINGS: Liver: The liver demonstrates no focal defects. Gallbladder: The gallbladder demonstrates multiple stones with no wall thickening measuring 2 mm. There is a negative sono Mendez's sign. Common bile duct: The CBD measures 6 mm. Pancreas: The visualized pancreas is normal with limited visualization. The tail is not seen. Right kidney: The right kidney measures 12.0 cm and demonstrates no hydronephrosis. Left kidney: The left kidney measures 13.4 cm with no hydronephrosis. Spleen: The spleen is normal measuring 11.2 cm. Aorta: The abdominal aorta is of normal size measuring 18 mm proximally and 14 mm mid. The distal aorta is not seen due to gas shadowing. Uterus: Single intrauterine fetus with heartbeat of 143 bpm. IMPRESSION: 1. Negative abdominal sonogram. No gallstones. 2. Single live intrauterine fetus. Electronically signed by: Cresencio Kidd On 04/12/2020 04:13:04 AM
[2020-04-12] MEDS ORDERED: MORPHINE 2 MG/ML 1ML VIAL (J2270) IV ONE (04:30)
[2020-04-12 04:40] VITALS: BP 97/55
--- NOTE | 2020-04-12 05:08 | IPNPDOC ---
Text Note Date of Service The patient was seen on 04/12/20. NOTE 04/12/20 0400 am 34 yo AO LMP 10/03/19 EDC 07/09/2020 AT 28 WEEKS HX ACUTE ONSET LUQ PAIN POST EATING PAIN 02/08. HISTORY GASTRIC BYPASS MASSIVE GB STONES . PATIENT GET THESE ATTACKS WITH EATING MEAT SIMILAR TO PREVIOUS EPISODES. RISK FACTORS PREVIOUS CLASSICAL CS PTD AT 28 WEEKS , JIMBO EN Y PROCEDURE.ABNORMAL PAP . PLAN HYDRATE PAIN MANAGEMENT.REASSESSMENT PROCEDURE INFORMATION: Exam: US Abdomen Complete Exam date and time: 04/12/2020 3:35 AM Age: 34 years old Clinical indication: Abdominal pain; Epigastric; ; Prior surgery; Surgery date: 6+ months; Surgery type: Gastric bypass; Additional info: HX gastric bypass. Requesting bedside US of upper abdomen TECHNIQUE: Imaging protocol: Real-time ultrasound of the abdomen with image documentation. COMPARISON: Abdomen, limited US 11/11/2019 3:36 PM FINDINGS: Liver: The liver demonstrates no focal defects. Gallbladder: The gallbladder demonstrates multiple stones with no wall thickening measuring 2 mm. There is a negative sono Mendez's sign. Common bile duct: The CBD measures 6 mm. Pancreas: The visualized pancreas is normal with limited visualization. The tail is not seen. Right kidney: The right kidney measures 12.0 cm and demonstrates no hydronephrosis. Left kidney: The left kidney measures 13.4 cm with no hydronephrosis. Spleen: The spleen is normal measuring 11.2 cm. Aorta: The abdominal aorta is of normal size measuring 18 mm proximally and 14 mm mid. The distal aorta is not seen due to gas shadowing. Uterus: Single intrauterine fetus with heartbeat of 143 bpm. IMPRESSION: 1. Negative abdominal sonogram. No gallstones. 2. Single live intrauterine fetus. VS,Fishbone, I+O VS, Fishbone, I+O FINDINGS: Value Date Time White Blood Count 8.5 10^3/uL 04/12/20 0326 Red Blood Count 3.66 10^6/uL L 04/12/20 0326 Hemoglobin 9.5 g/dl L 04/12/20 0326 Hematocrit 30.8 % L 04/12/20 0326 Mean Corpuscular Volume 84.2 fl 04/12/20 0326 Mean Corpuscular Hemoglobin 26.0 pg L 12/12/20 0326 Mean Corpuscular Hemoglobin Concent 30.8 g/dl L 04/12/206 Red Cell Distribution Width 14.1 % 04/12/20325 Platelet Count 189 10^3/uL 04/12/20 0326 Nucleated Red Blood Cells % (auto) 0.0 % 04/12/20 0326 Laboratory Tests 04/12/20 03:26 Vital Signs Date Time Temp Pulse Resp B/P (MAP) Pulse Ox O2 Delivery O2 Flow Rate FiO2 04/12/20 04:37 20 04/12/20 03:56 87 103/63 (76) 04/12/20 02:35 98.1 Terrance Malloy MD Apr 12, 2020 04:58
[2020-04-12 06:55] VITALS: BP 99/56
== END 2020-04-12 06:50 | disposition home or self-care (01) ==
LOC: M LDO 02:30
PROVIDERS: ATTEND Obstetrics & Gynecology
DX: O26.893 Other specified pregnancy related conditions, third trimester (principal); R10.12 Left upper quadrant pain; O99.843 Bariatric surgery status complicating pregnancy, third trimester; Z3A.28 28 weeks gestation of pregnancy
CPT/HCPCS: 36415; 76700; 76815; 80053; 85027; 96374; G0378; G0463; J2270

== ENCOUNTER 2020-06-09 20:00 | Outpatient (CLI) | payer OTHER ==
[~2020-06-09] VITALS: Ht 175.3 cm; Wt 101.8 kg
[~2020-06-09 20:00] MED LIST changes: +COLA100C5 PO; +FERR325T18 PO; +FOLI1TAB11 PO; +IRON27TA2 PO; +PREN200C PO; +UNIS25TA3; +VITA500T9 PO
[2020-06-09 20:26] VITALS: BP 115/71
[2020-06-09 22:05] VITALS: BP 121/76
--- NOTE | 2020-06-09 22:31 | IPNPDOC ---
Text Note Date of Service The patient was seen on 06/09/20. NOTE 34yo at 35+5wks presenting for c/o gallbladder attack. She endorses nausea and vomiting and upper abdominal pain after eating avocado, drinking a glass of milk, and having salad with olive oil dressing yesterday. She reports having inability to drink more than 15oz of water all day due to nausea and has since developed a headache but unable to take tylenol due to vomiting when she tried to take it earlier tonight. She reports good FM, denies VB, LOF, or ctx's. Vitals: normotensive, afebrile NST: reactive Mcnabb: no ctx's. PE: GEN: patient resting comfortably in reclined sitting position in bed in NAD, AAO x3 HEENT: NC/AT, airway patent and self-maintained RESP: no exaggerated respiratory effort, no cough ABD: soft, nondistended, +tenderness to deep palpation in epigastric area, no rebound tenderness FUNDUS: S=D, no tenderness : Deferred due to no complaints Ext: no edema, no calf tenderness A/P: 34yo at 35+5wks presenting for c/o gallbladder attack with n/v and epigastric pain after eating fatty foods yesterday. Patient has known history of gallbladder issues (last seen in ER 2 weeks ago with similar symptoms). Patient given 1L of LR IVF as bolus and reports her DAVIES and abdominal pain had subsided. She reports that her nausea also was eased and was able to tolerate drinking water in triage. Patient counseled extensively on fat-free diet until her delivery next week (pa heduled RLTCS at 36wks due to h/o classical in [facility]). Patient encouraged to stay hydrated. Counseled on FKCs, labor precautions. Patient to f/u for OB appt as scheduled in 3 days. Patient dispositioned home in stable condition. All questions answered. Med rec done. VS,Fishbone, I+O VS, Fishbone, I+O Vital Signs Date Time Temp Pulse Resp B/P (MAP) Pulse Ox O2 Delivery O2 Flow Rate FiO2 06/09/20 22:05 97.8 91 19 121/76 (91) GUICHO LLOYD DO Jun 09, 2020 22:31
== END 2020-06-09 22:20 | disposition home or self-care (01) ==
LOC: M LDO 20:00
DX: O26.613 Liver and biliary tract disorders in pregnancy, third trimester (principal); K82.9 Disease of gallbladder, unspecified; Z3A.35 35 weeks gestation of pregnancy
CPT/HCPCS: 59025; 96360; G0378; G0463

== ENCOUNTER 2020-06-13 09:30 | Inpatient (IN) | payer OTHER ==
--- NOTE | 2020-06-05 15:14 | HPE ---
HISTORY AND PHYSICAL DATE OF ANTICIPATED ADMISSION: 06/19/2020 HISTORY OF PRESENT ILLNESS: This lady is a 34-year-old 3, para 1, was admitted for elective repeat section because of previous history of classical section. Her past history in 2016 at 28 weeks had a classical section because of PPROM and placenta previa. In 2018 at 24 weeks ? was a gestational diabetic and had a 16 week demise. There is limited information regarding the section as it was performed in [place], and apparently the baby weighed 1 kg. Her risk factors are she had delivery, she had a history of a classical section, she has an abnormal Pap smear, and she has had a history of gastric bypass. PHYSICAL EXAMINATION: On examination today, she is in no acute distress. Symphysis-fundus height is 36 cm. Blood pressure is 116/70. Respirations are 18. Pulse is 72. Current weight is 215.8 pounds. Her BMI is 27.5. Her prepregnancy weight was 186, and she is 5 feet 9 inches. The rest of the examination is unremarkable. She is normocephalic/atraumatic. Neck: Full range of motion. Pupils equal and reactive to light. Distal pulses are symmetric. No evidence of DVT, PE, or superficial phlebitis. Chest is clear bilaterally to bases. No wheezes or rhonchi. No CVA tenderness. Abdomen was soft. Four quadrant bowel sounds were noted. The previous section scar is clean and nontender. GBS culture was performed. Digital examination was not performed. She has had nonstress test which was a category 1. She has received up until this point her 17-hydroxyprogesterone injections because of a previous history of labor and delivery. PLAN: We discussed the risks and benefits of section including hemorrhage, infection, perforation, , reoperation, remote possibility of hysterectomy, remote possibility of blood transfusion, remote possibility of admission of the infant to the NICU. All questions were answered. We had a 20 minute discussion. Patient signed her consent form. We await Anesthesia consultation. cc: Marj Dutton OB
[~2020-06-13] VITALS: Ht 175.3 cm; Wt 69.1 kg
[2020-06-29 07:25] VITALS: BP 119/76
[2020-06-29] MEDS ORDERED: LR 1,000 ML IV SCH ×3 (07:30→12:35)
[2020-06-29] MEDS ORDERED: B-12100010 PO (07:34)
[2020-06-29 07:37] LABS: HEMATOCRIT 35.5 % (36.0-47.0); MEAN CORPUSCULAR HEMOGLOBIN 26.1 pg (27.0-33.0); MEAN CORPUSCULAR VOLUME 84.1 fl (80.0-96.0); PLATELET COUNT, AUTOMATED 251 10^3/uL (150-450); RED BLOOD COUNT 4.22 10^6/uL (4.00-5.40); WHITE BLOOD COUNT 6.2 10^3/uL (4.0-10.0)
[2020-06-29] MEDS ORDERED: AZITHROMYCIN INJ 500 MG, VIAL MATE ADAPTER 1 EACH in NS 250 ML IV ONE (07:45)
[2020-06-29] MEDS ORDERED: AZITHROMYCIN INJ 500MG VIAL (J0456 PER 500MG) As Ordered ONE (07:59)
[2020-06-29] MEDS ORDERED: ACETAMINOPHEN 650 MG SUPP PR ONE (08:00)
[2020-06-29] MEDS ORDERED: BUPIVACAINE HCL 0.25% 10ML VIAL SC ONE (08:00)
[2020-06-29] MEDS ORDERED: ceFAZolin SOD 2 GM in IV 1 EA IV ONE (08:30)
[2020-06-29] MEDS: PRENATAL VITAMINS CHEWABLE TABLET PO SCH (09:00)
--- NOTE | 2020-06-29 10:05 | IPNPDOC ---
Obstetrical Progress Note Date of Service Jun 29, 2020 Subjective 34yo at 38+3wks presenting for RLTCS due to h/o classical section at 28wks for PPROM with placenta previa. Patient was originally scheduled at 37+0wks but upon routine screening, tested positive for COVID. She remained asymptomatic for COVID but has now completed her 10 days of quarantine per current [facility] CDC guidelines. She reports ctx's that started yesterday. Denies DFM, LOF, or VB. Assessment Heart Rate Tracing: Category I Tocometer Contractions: Yes Frequency: irregular Assessment and Plan Status: Reassuring Additional Comments Florina is a 34yo at 38+3wks presenting for RLTCS for h/o classical c/s rescheduled to today due to COVID positive screening test on original surgery date. Patient was recounseled on the r/b/a/i of RLTCS to include possible need for blood products and associated risks as transfer of provider due to change in surgery date. Patient desires to proceed with written consents signed. Ancef 2gm enroute to OR (azithromycin ordered by Dr. Malloy already given prior to transfer of care). NPO Beck to gravity after spinal in OR Anesthesia and OR team notified. All questions answered. GUICHO LLOYD DO Jun 29, 2020 10:05
[2020-06-29] MEDS ORDERED: BICITRA 30ML SOLN UDC PO ONE (10:40)
[2020-06-29] MEDS ORDERED: OXYTOCIN 30 UNITS IN 0.9% NaCl 500ML IV BAG (J2590) As Ordered ONE (10:47)
[2020-06-29] MEDS ORDERED: ONDANSETRON 4MG/2ML VIAL As Ordered ONE (10:47)
[2020-06-29] MEDS ORDERED: KETOROLAC 60MG 2ML VIAL As Ordered ONE (10:47)
[2020-06-29] MEDS ORDERED: dexameTHASONE 4 MG/ML 1ML VIAL (J1100 PER 1MG) As Ordered ONE (10:47)
[2020-06-29] MEDS ORDERED: MORPHINE PRES-FREE INJ 10 MG/10 ML VIAL (J2274) As Ordered ONE (10:47)
[2020-06-29] MEDS ORDERED: NALOXONE INJ 0.4MG/1ML VIAL (J2310 PER 1MG) IV PRN ×2 (11:03)
[2020-06-29] MEDS ORDERED: NALBUPHINE HCL 10 MG/ML AMP (J2300) IV PRN (11:03)
[2020-06-29] MEDS ORDERED: METOCLOPRAMIDE INJ 10MG/2ML VIAL (J2765 PER 1) IV PRN (11:03)
[2020-06-29] MEDS ORDERED: ONDANSETRON 4MG/2ML VIAL IV PRN ×2 (11:03→12:35)
[2020-06-29] MEDS ORDERED: PHENYLephrine 500MCG 5ML (100MCG/ML) SYRINGE As Ordered ONE (11:23)
[2020-06-29] MEDS ORDERED: OXYTOCIN DRIP 30 UNITS in IV 1 EA IV SCH (12:08)
[2020-06-29] MEDS ORDERED: ONDANSETRON 4 MG TAB PO PRN (12:10)
[2020-06-29] MEDS ORDERED: METHYLERGONOVINE MALEATE 0.2 MG TAB PO PRN (12:10)
[2020-06-29] MEDS ORDERED: PERCOCET 5MG/325MG TAB PO PRN (12:10)
[2020-06-29] MEDS ORDERED: SIMETHICONE 80MG CHEW TAB PO PRN (12:10)
[2020-06-29] MEDS ORDERED: oxyCODONE 5MG TAB PO PRN (12:35)
[2020-06-29] MEDS ORDERED: fentaNYL 100 MCG/2 ML INJECTION (J3010) IV PRN (12:35)
[2020-06-29 14:00] VITALS: BP 138/88
[2020-06-29 14:30] VITALS: BP 143/85
[2020-06-29] MEDS: LR 1,000 ML IV SCH (15:54)
--- NOTE | 2020-06-29 17:23 | ROOPDOC ---
[facility] Report Of Operation Report of Operation DATE OF PROCEDURE: 06/29/20 PREPROCEDURE DIAGNOSES: 1. History of classical section. 2. 38 weeks gestation 3. Obesity complicating 4. Bariatric surgery complicating POSTPROCEDURE DIAGNOSES: 1. History of classical section. 2. 38 weeks gestation 3. Obesity complicating 4. Bariatric surgery complicating PROCEDURE: 1. Repeat low transverse section 2. Adhesiolysis SURGEON: Jessica Greenwood DO HOOP COILER: Mindi Workman MD ANESTHESIA: Spinal. ESTIMATED BLOOD LOSS: Approximately 300 mL. FLUIDS: 1000mL URINE OUTPUT: 20mL COMPLICATIONS: None FINDINGS: Female infant in cephalic presentation weighing 3250g ([id number]) with APGARS 8/9. Clear fluid on amniotomy. No nuchal cord. Adhesions of the bladder to the lower uterine segment. Thick fascial adhesions appreciated to the peritoneum. Normal-appearing bilateral fallopian tubes and ovaries. Normal- appearing uterus. DESCRIPTION OF PROCEDURE: The risks, benefits, indications and alternatives of the procedure were reviewed with the patient and informed consent was obtained. The patient was taken to the operating room where spinal anesthesia was obtained without difficulty and found to be adequate. She was then prepped and draped in the normal, sterile fashion in the dorsal supine position with a leftward tilt. A Pfannenstiel skin incision was then made with the scalpel and carried through to the underlying layer of fascia. The fascia was incised in the midline and the incision extended laterally with the Calle scissors. The superior aspect of the fascial incision was grasped with the Paddy clamps, elevated, and the underlying rectus muscles dissected off bluntly aided by scalpel and bovie. Attention was then turned to the inferior aspect of this incision, which, in a similar fashion, was grasped, tented up with the Paddy clamps and the rectus muscle dissected off by both by blunt dissection and aided with calle scissors. Rectus muscles were then at the midline; the peritoneum identified, tented up with two Elaine clamps, and entered with Metzenbaum scissors. The peritoneal incision was then extended horizontally/superiorly with good visualization of the bladder. A Mobius retractor was introduced into the abdomen. The vesicouterine peritoneum was then identified, grasped with the pick-ups and entered sharply with the Metzenbaum scissors. This incision was then extended laterally. An attempt was made to create a bladder flap, however, significant bladder adhesions were encountered and therefore not completed. Next, the lower uterine segment was incised in a transverse fashion with the scalpel well above the bladder. The uterine incision was then extended manually in a superior-lateral fashion. The amniotic sac was artificially ruptured with productive of clear fluid. The infant was found in cephalic presentation. Delivery of the head, shoulders and body was uncomplicated through the hysterotomy site. IV Pitocin bolus was initiated upon delivery of the infant. The had vigorous cry and good tone on the delivery field therefore delayed cord clamping was allowed for 35 seconds. The cord was then doubly clamped and cut. The was handed off to the waiting Team. IV Pitocin bolus was initiated upon delivery of the infant. The placenta was then removed spontaneously with gentle traction on the umbilical cord manually; the uterus was then manually cleared of all clots and debris. The uterine incision was repaired with 0-monocryl in a running, locked fashion. A second layer of 0-monocryl was then used to imbricate the hysterotomy site in a vertical fashion. The Mobius retractor was removed and the hysterotomy was again noted to be hemostatic. The fascia then was reapproximated with 0-vicryl in a running, non- locking fashion. The subcutaneous layer was closed with 3-0 vicryl in an interrupted fashion. The skin was closed with 4-0 monocryl in a subcuticular fashion. The incision was then dressed with steri-strips and a pressure dressing. At the completion of the case, bimanual exam performed with good uterine tone an d minimal vaginal bleeding. The patient tolerated the procedure well. Sponge, lap and needle counts were correct times three. The patient was taken to the recovery room in stable condition. JESSICA GREENWOOD DO Jun 29, 2020 12:21
[2020-06-29 17:45] VITALS: BP 130/87
[2020-06-29] MEDS ORDERED: KETOROLAC 30 MG/ML 1ML VIAL IV SCH (18:00)
[2020-06-29 22:00] VITALS: BP 118/79
[2020-06-29] MEDS: DOCUSATE SODIUM 100MG CAPSULE PO SCH (22:45)
[2020-06-29] MEDS: diphenhydrAMINE 50MG/ML VIAL (J1200) IV PRN (22:45)
[2020-06-30] MEDS: LR 1,000 ML IV SCH (00:08)
[2020-06-30 02:00] VITALS: BP 108/71
--- NOTE | 2020-06-30 03:26 | OBDS ---
[facility] Obstetrical Discharge Sum. Obstetrical Discharge Summary Date: Jul 01, 2020 : 3 Term: 1 Pre-term: 1 Abortions: 1 Livin VDRL: Non-Reactive Rh: Positive Rubella: Immune Labor RLTCS scheduled for 37 weeks but delayed until 38+3wks due to COVID+ screening test Delivery RLTCS Sex: Female Infant Weight: pounds (7), ounces (3), grams (3250) Anesthesia: Regional Anesthesia A/P, Post Course List any complications Admission diagnosis: 1.) History of classical section 2.) Bariatric surgery complicating 3.) Obesity complicating 4.) 38 weeks gestation Discharge diagnosis: 1.) History of classical section 2.) Bariatric surgery complicating 3.) Obesity complicating 4.) 38 weeks gestation Condition at Discharge: Stable Discharge Instructions: Home Activity: Pelvic rest (nothing in the vagina) and no lifting >15lbs for 6 weeks Diet: regular as tolerated Medications: at [place] Follow-up: 2 weeks [place] PLY SPLICER GUICHO LLOYD DO Jun 30, 2020 03:25 BILL HORTON DO Jul 01, 2020 07:13
[2020-06-30] MEDS: diphenhydrAMINE 50MG/ML VIAL (J1200) IV PRN ×2 (03:41→10:13)
[2020-06-30 06:00] VITALS: BP 108/64
--- NOTE | 2020-06-30 07:21 | IPNPDOC ---
Progress Note Date of Service: Jun 30, 2020 Day#: 1 Progress Note SUBJECT: Florina is a 34yo POD#1 s/p RLTCS for h/o classical c/s, doing well day # 1. She has been ambulating, voiding spontaneously without issue and tolerating regular diet. Breast feeding without issue. Reports lochia is small. Pain has been controlled on oral pain meds. OBJECTIVE: VITAL SIGNS: Within normal limits, afebrile. Alert and oriented times three. Abdomen: Fundus firm at U-1. Soft, NTTP. Incision: dressing removed, steri-strips intact, incision c/d/i Small lochia. ASSESSMENT: Florina is a 34yo POD#1 s/p RLTCS for h/o classical c/s, doing well day # 1. Vitals within normal limits, afebrile, hemodynamically stable with no evidence of infection. PLAN: 1. Discharge planning to home tomorrow. 2. Percocet for pain (patient with h/o gastric bypass cannot get NSAIDS) 3. Encourage breast feeding, consultation. 4. Encourage regular diet and ambulation OOB as tolerated 5. PP visit in 2 weeks 6. Discussed return precautions at length. VS, I&O, 24H, Fishbone Vital Signs/I&O Vital Signs Date Time Temp Pulse Resp B/P (MAP) Pulse Ox O2 Delivery O2 Flow Rate FiO2 06/30/20 02:00 97.9 77 16 108/71 (83) 98 Room Air I&O- Last 24 Hours up to 6 AM 06/30/20 06:00 Intake Total 5020 ml Output Total 1550 ml Balance 3470 ml Laboratory Data 24H LABS Laboratory Tests 2 06/29/20 07:20: Nucleated Red Blood Cells % (auto) 0.0 CBC/BMP Laboratory Tests 06/29/20 07:20 GUICHO LLOYD DO Jun 30, 2020 03:22
[2020-06-30] MEDS: PERCOCET 5MG/325MG TAB PO PRN ×3 (07:46→21:20)
[2020-06-30] MEDS: DOCUSATE SODIUM 100MG CAPSULE PO SCH ×2 (07:47→21:19)
[2020-06-30] MEDS: PRENATAL VITAMINS CHEWABLE TABLET PO SCH (09:36)
[2020-06-30 10:00] VITALS: BP 108/65
[2020-06-30 14:00] VITALS: BP 110/76
[2020-06-30] MEDS ORDERED: IBUPROFEN 800 MG TAB PO SCH (14:00)
[2020-06-30 17:58] VITALS: BP 106/58
[2020-06-30 22:00] VITALS: BP 119/80
[2020-07-01 02:00] VITALS: BP 114/78
[2020-07-01] MEDS: PERCOCET 5MG/325MG TAB PO PRN (03:58)
[2020-07-01 06:00] VITALS: BP 110/70
--- NOTE | 2020-07-01 07:11 | IPNPDOC ---
Progress Note Date of Service: Jul 01, 2020 Day#: 2 Progress Note SUBJECT: 34yo PPD2 s/p RCD for history of classical and adhesiolysis pregn vahe c/b history of bariatric surgery. She has been ambulating, voiding spontaneously without issue and tolerating regular diet. Breast feeding without issue. Reports lochia is [like a normal period]. Patient is ambulating well. [Reports some cramping with . Denies any pain. Voiding and passing flatus without difficulty]. OBJECTIVE: VITAL SIGNS: Within normal limits, afebrile. Alert and oriented times three. No increased WOB Heart rate: non-tachy Abdomen: Fundus firm at U-2. Soft, NTTP. [Minimal] lochia per pt ASSESSMENT: 34yo PPD2 s/p RCD for history of classical and adhesiolysis c/b history of bariatric surgery. Vitals within normal limits, afebrile, hemodynamically stable with no evidence of infection. PLAN: 1. Discharge to home today. 2. Tylenol and narcotics for pain. 3. Encourage breast feeding and ambulation. 4. Desires IUD in 6wk 5. Routine PP visit in 2 and 6 weeks in clinic. 6. Discussed return precautions at length. VS, I&O, 24H, Fishbone Vital Signs/I&O Vital Signs Date Time Temp Pulse Resp B/P (MAP) Pulse Ox O2 Delivery O2 Flow Rate FiO2 07/01/20 06:00 97.6 78 18 110/70 (83) 99 Room Air BILL HORTON DO Jul 01, 2020 07:11
[2020-07-01] MEDS: DOCUSATE SODIUM 100MG CAPSULE PO SCH (07:30)
[2020-07-01] MEDS: PRENATAL VITAMINS CHEWABLE TABLET PO SCH (07:31)
== END 2020-07-01 11:40 | disposition home or self-care (01) | DRG 773 ==
LOC: M LDI 06-29 06:50 → M OBS 06-29 13:42
PROVIDERS: ADMIT Obstetrics & Gynecology; ATTEND Obstetrics & Gynecology
PROC: 10D00Z1 Extraction of Products of Conception, Low, Open Approach (ICD-10-PCS; principal; 2020-06-29 08:00)
DX: O34.211 Maternal care for low transverse scar from previous cesarean delivery (principal); Z37.0 Single live birth; Z3A.37 37 weeks gestation of pregnancy; O99.214 Obesity complicating childbirth; Z98.84 Bariatric surgery status